=== PATIENT | male | born 1970 | race Caucasian/White ===

== ENCOUNTER 2024-03-16 09:24 | Emergency (ER) | payer SELFPAY ==
[2024-03-16] MEDS ORDERED: Lidocaine 1% PF 5 ML VIAL ONE (11:00)
[2024-03-16] MEDS ORDERED: Sodium Chloride 0.9% 100 ML ONE (11:09)
[2024-03-16] MEDS ORDERED: CEFAZOLIN 1 GM VIAL ONE (11:09)
[2024-03-16] MEDS ORDERED: Boostrix 0.5 ML (Tdap) VIAL (>/=7 yrs of age) ONE (11:10)
== END 2024-03-16 12:48 | disposition home or self-care (01) ==
LOC: ERS 09:24
DX: S62.633B Displaced fracture of distal phalanx of left middle finger, initial encounter for open fracture (principal); F17.210 Nicotine dependence, cigarettes, uncomplicated; W22.8XXA Striking against or struck by other objects, initial encounter
CPT/HCPCS: 12002; 90471; 90715; 96374; J0690